=== PATIENT | female | born 1975 | race African-American/Black ===

== ENCOUNTER 2017-10-11 11:22 | Observation (INO) ==
[2017-10-11] MEDS ORDERED: Sod Chloride 0.9% Inj 1,000 ML IV.SIG ONE (11:56)
--- NOTE | 2017-10-11 12:02 | ED ---
HPI General Chief complaint: Nausea/Vomiting/Diarrhea Stated complaint: Vomiting/Evac Time Seen by Provider: 10/11/17 11:49 History of Present Illness HPI Narrative: Patient comes emerge department complaining of generalized abdominal pain is crampy-like in nature throughout her abdomen. Reports symptoms began shortly after eating seafood last night. Patient states that she eats salmon every night, which she did again last night. Denies any radiation of pain. Patient reports taking her Zofran around 4:00 in the morning with no improvement of symptoms. Patient reports associated nausea, vomiting, and looser than normal stools. Denies any blood in vomit or stools. Denies any urinary symptoms, chest pain, shortness of breath, or fevers. Patient reports only abdominal surgeries for hernia repair. Related Data Home Medications Medication Instructions Recorded Confirmed No Known Home Medications 10/11/17 10/11/17 Allergies Allergy/AdvReac Type Severity Reaction Status Date / Time No Known Allergies Allergy Uncoded 05/18/13 22:36 Review of Systems Except as stated in HPI: all other systems reviewed are negative [facility] Medical History Medical History Patient denies medical problems (Acute) Surgical History Surgical History H/O hernia repair (Acute) History of hip surgery (Acute) Social History Social History Second Hand Smoke Exposure: Yes Smoking Status: Current every day smoker Tobacco Type: Cigarettes How Often Do You Have a Drink Containing Alcohol: Never Recent Travel in [place] within the Last 8 Weeks: No Recent Out of Country Travel within the Last 8 Weeks: No Immunization History Tetanus Immunization: Unsure Hx Influenza Vaccine This Season: No Exam Narrative Exam Narrative: GENERAL: Well-developed, overly nourished, in no acute distress , and non-ill appearing. SKIN: Focused skin assessment warm and dry. HEAD: Atraumatic. Normocephalic. EYES: Pupils equal and round. EOMI. No scleral icterus. No injection or drainage. ENT: No nasal bleeding or discharge. Mucous membranes pink and moist. NECK: Trachea midline. Supple. No nuclear rigidity. CARDIOVASCULAR: Regular rate and rhythm. No murmur appreciated. RESPIRATORY: No accessory muscle use. No respiratory distress. Clear to auscultation. Breath sounds equal bilaterally. GASTROINTESTINAL: Abdomen soft, non-tender, nondistended, and no guarding. Hepatic and splenic margins not palpable. Normal bowel sounds x4. No pulsatile mass. MUSCULOSKELETAL: No obvious deformities. No clubbing. No cyanosis. No edema. Full range of motion. NEUROLOGICAL: Awake and alert. No obvious cranial nerve deficits. Motor grossly within normal limits. Normal speech. PSYCHIATRIC: Appropriate mood and affect; insight and judgment normal. Course Reevaluation(s) Reevaluation #1: Patient reassessed in no acute distress. Discussed all laboratory and x-ray findings with patient. Awaiting CT scan. Patient now reports she has had something like this happen to her before and was placed on double to see if it was a combination of GI and [employer] problems. Time: 14:05 Consultations Consultation #1: Discussed patient with Dr. Larry Peterson, who is agreeable to admit the patient Time: 17:04 Initial Documented Vital Signs Temperature 98.5 F 10/11/17 11:26 Pulse Rate 69 10/11/17 11:26 Respiratory Rate 16 10/11/17 11:26 Blood Pressure 115/60 10/11/17 11:26 Pulse Oximetry 100 10/11/17 11:26 Last Documented Vital Signs Temperature 98.5 F 10/11/17 11:26 Pulse Rate 74 10/11/17 14:50 Respiratory Rate 16 10/11/17 15:17 Blood Pressure 134/74 10/11/17 14:50 Pulse Oximetry 99 10/11/17 14:50 Medical Decision Making MDM Narrative Medical decision making narrative: Patient was seen and examined. IV was established patient was placed on continuous cardiac monitoring. Patient was given Zofran, IV morphine, and IV fluids. Patient was reevaluated requesting more pain and nausea medication. Patient was given additional Reglan, and Benadryl. Discussed all findings patient, who states she does not feel well enough to go home. Discussed patient with Dr. To patient placed in observation for further evaluation. Discussed this with patient, is agreeable for admission. All questions were answered. Patient requesting something for burning sensation from vomiting. GI cocktail was ordered. Discussed patient with hospitalist who is agreeable to admit the patient. Patient remained stable throughout ED course. Differential Diagnosis Differential Diagnosis: Gastroenteritis, UTI, pancreatitis, metabolic disturbance, dehydration, cyclic vomiting, SBO POC Test Results POC Urine Results: Negative Lab Data Lab results reviewed: Yes I reviewed the patient's lab results. Result diagrams: 10/11/17 12:15 10/11/17 12:15 Lab Results 10/11/17 10/11/17 10/11/17 Range/Units 12:15 12:15 12:50 WBC 11.1 H (4.0-11.0) th/mm3 RBC 5.49 H (4.00-5.30) mil/mm3 Hgb 13.2 (11.6-15.3) gm/dL Hct 42.2 (35.0-46.0) % MCV 76.8 L (80.0-100.0) fL MCH 24.0 L (27.0-34.0) pg MCHC 31.2 L (32.0-36.0) % RDW 16.1 (11.6-17.2) % Plt Count 324 (150-450) th/mm3 MPV 8.6 (7.0-11.0) fL Neut % (Auto) 79.5 H (16.0-70.0) % Lymph % (Auto) 18.1 (9.0-44.0) % [place] % (Auto) 2.0 (0.0-8.0) % Eos % (Auto) 0.1 (0.0-4.0) % Baso % (Auto) 0.3 (0.0-2.0) % Neut # (Auto) 8.8 H (1.8-7.7) th/mm3 Lymph # (Auto) 2.0 (1.0-4.8) th/mm3 [place] # (Auto) 0.2 (0.0-0.9) th/mm3 Eos # (Auto) 0.0 (0.0-0.4) th/mm3 Baso # (Auto) 0.0 (0.0-0.2) th/mm3 WBC Differential . Differential Comment Auto diff final Sodium 141 (136-145) meq/L Potassium 3.9 (3.5-5.1) meq/L Chloride 111 H (98-107) meq/L Carbon Dioxide 18.3 L (21.0-32.0) meq/L Anion Gap 12 (5-15) meq/L BUN 9 (7-18) mg/dL Creatinine 0.95 (0.50-1.00) mg/dL Estimated GFR 78 L (>89) mL/min Random Glucose 110 H (74-106) mg/dL Calcium 9.6 (8.5-10.1) mg/dL Total Bilirubin 0.4 (0.2-1.0) mg/dL AST 16 (15-37) U/L ALT 31 (10-53) U/L Alkaline Phosphatase 58 (45-117) U/L Total Protein 8.4 H (6.4-8.2) g/dL Albumin 4.3 (3.4-5.0) g/dL Lipase 106 (73-393) U/L Urine Color Yellow (Yellw/Straw) Urine Clarity Hazy H (Clear) Urine pH 9.0 H (5.0-8.5) Ur Specific [place] 1.023 (1.002-1.035) Urine Protein 100 H (Neg-Trace) mg/dL Urine Glucose (UA) Negative (Negative) mg/dL Urine Ketones Negative (Negative) mg/dL Urine Occult Blood Negative (Negative) Urine Nitrate Negative (Negative) Urine Bilirubin Negative (Negative) Urine Urobilinogen Less than 2 (Less than 2) mg/dL Ur Leukocyte Esterase Negative (Negative) Urine RBC 2 (0-3) /hpf Urine WBC 1 (0-5) /hpf Ur Squamous Epith Cells 17 (0-5) /hpf Urine Bacteria Rare H (None) /hpf Urine Mucus Few H (Occasional) /lpf Micro UA Comment Culture not ind Urine Culture Comments Culture not ind Imaging Data Radiologist's impression: ITS Impressions Abdomen/Pelvis CT 10/11/17 11:56 CONCLUSION: 1. No acute findings within the abdomen and pelvis. Small hiatal hernia. Previous plate and screw fixation left acetabulum. Chest X-Ray 10/11/17 13:14 CONCLUSION: No acute cardiopulmonary disease. Discharge Plan Discharge Disposition Patient Disposition: 30 Still Patient Discharge Details Discharge Problem: Intractable abdominal pain Physicians Team ED Provider: Praful To ED Midlevel Provider: Armando Zhang Primary Care Provider: Primary Care Nickyi,Nano Attending Provider: Larry Peterson Status ED Status: Admitted Observation Patient
[2017-10-11] MEDS ORDERED: Morphine Inj 4 MG/ML Vial IV.PUSH ONE (12:32)
[2017-10-11 12:39] LABS: Baso % (Auto) 0.3 % (0.0-2.0); Eos % (Auto) 0.1 % (0.0-4.0); Hematocrit 42.2 % (35.0-46.0); Hemoglobin 13.2 gm/dL (11.6-15.3); Lymph % (Auto) 18.1 % (9.0-44.0); Mean Corpuscular HGB Conc 31.2 % (32.0-36.0); Mean Corpuscular Volume 76.8 fL (80.0-100.0); Mean Platelet Volume 8.6 fL (7.0-11.0); Mono # (Auto) 0.2 th/mm3 (0.0-0.9); Neut # (Auto) 8.8 th/mm3 (1.8-7.7); Neut % (Auto) 79.5 % (16.0-70.0); Platelet Count 324 th/mm3 (150-450); Red Blood Count 5.49 mil/mm3 (4.00-5.30); Red Cell Distribution Width 16.1 % (11.6-17.2); White Blood Count 11.1 th/mm3 (4.0-11.0)
[2017-10-11 12:59] LABS: Alanine Aminotransferase 31 U/L (10-53); Albumin 4.3 g/dL (3.4-5.0); Anion Gap 12 meq/L (5-15); Aspartate Aminotransferase 16 U/L (15-37); Blood Urea Nitrogen 9 mg/dL (7-18); Calcium 9.6 mg/dL (8.5-10.1); Carbon Dioxide 18.3 meq/L (21.0-32.0); Chloride 111 meq/L (98-107); Glomerular Filtration Rate 78 mL/min (>89); Glucose,Random 110 mg/dL (74-106); Lipase 106 U/L (73-393); Potassium 3.9 meq/L (3.5-5.1); Sodium 141 meq/L (136-145)
[2017-10-11 13:01] LABS: Alkaline Phosphatase 58 U/L (45-117); Total Protein 8.4 g/dL (6.4-8.2)
--- NOTE | 2017-10-11 13:40 | XR ---
EXAM DATE: 10/11/2017 1:30 PM EDT AGE/SEX: 42 years / Female INDICATIONS: Free Air. CLINICAL DATA: This is the patient's initial encounter. Patient reports that signs and symptoms have been present for 1 day and indicates a pain score of Nonresponsive. MEDICAL/SURGICAL HISTORY: Non-responsive. Non-responsive. COMPARISON: No prior exams available for comparison. FINDINGS: A single AP view of the chest demonstrates the lungs to be symmetrically aerated without evidence of mass, infiltrate or effusion. The cardiomediastinal contours are unremarkable. Osseous structures a re intact. CONCLUSION: No acute cardiopulmonary disease. Electronically signed by: David Mendez MD 10/11/2017 1:39 PM EDT
[2017-10-11] MEDS ORDERED: Ketorolac Inj 30 MG/ML (IVP) Vial IV.PUSH ONE (13:53)
[2017-10-11 14:01] LABS: Bacteria,Urine Rare /hpf; Bilirubin,Urine Negative (Negative); Clarity,Urine Hazy (Clear); Color,Urine Yellow (Yellw/Straw); Glucose,Urine (UA) Negative (Negative); Leukocyte Esterase,Urine Negative (Negative); Mucus,Urine Few /lpf (Occasional); Nitrite,Urine Negative (Negative); Specific Gravity,Urine 1.023 (1.002-1.035); Squamous Epithelial Cell,Urine 17 /hpf (0-5)
[2017-10-11] MEDS ORDERED: Morphine Sulfate Inj 2 MG/ML Vial IV.PUSH ONE (14:10)
--- NOTE | 2017-10-11 16:01 | CT ---
EXAM DATE: 10/11/2017 3:30 PM EDT AGE/SEX: 42 years / Female INDICATIONS: Abdominal pain with vomiting. CLINICAL DATA: This is the patient's initial encounter. Patient reports that signs and symptoms have been present for 1 day and indicates a pain score of 8/10. MEDICAL/SURGICAL HISTORY: None. . hernia repair ORAL CONTRAST: No oral contrast ingested. RADIATION DOSE: 9.36 CTDI (mGy) COMPARISON: No prior exams available for comparison. TECHNIQUE: Multiple contiguous axial images were obtained through the abdomen and pelvis following b olus infusion of 100 ml Omnipaque 350 (iohexol) nonionic water-soluble contrast as a single exam do se. No oral contrast ingested. Using automated exposure control and adjustment of the mA and/or kV a ccording to patient size, radiation dose was kept as low as reasonably achievable to obtain optimal d iagnostic quality images. DICOM format image data is available electronically for review and compari son. FINDINGS: Lung bases demonstrate minimal linear atelectasis or scarring. No acute findings in the liver, spleen, adrenals, kidneys or pancreas. No calcified gallstones. The bowel obstruction. No free air or free fluid. No adenopathy. There is previous screw fixation of the left posterior acetabulum. No pelvic masses or adenopathy. Small hiatal hernia. CONCLUSION: 1. No acute findings within the abdomen and pelvis. Small hiatal hernia. Previous plate and screw fi xation left acetabulum. Electronically signed by: Cali Lopez MD 10/11/2017 3:59 PM EDT
[2017-10-11] MEDS ORDERED: Aluminum/Magnesium/Simethacone Susp 30 ML UDC PO ONE (16:45)
[2017-10-11] MEDS ORDERED: Morphine Sulfate Inj 2 MG/ML Vial IV.PUSH PRN (17:04)
[2017-10-11] MEDS: Morphine Inj 4 MG/ML Vial IV.PUSH PRN ×2 (17:24→21:18)
[2017-10-11] MEDS: Sod Chloride 0.9% Inj 1,000 ML IV.CONT SCH (17:24)
--- NOTE | 2017-10-11 18:14 | P.HPIM ---
History of Present Illness Primary Care Physician: No Primary Care Physician History of Present Illness: Mrs. Haque is a 42 year old female. She came into the ER today secondary to nausea vomiting and diarrhea. She reports no sick contacts. She also cannot recall any food that she ate that could have triggered her nausea vomiting and diarrhea. Her primary complaint is severe abdominal pain. She says that she has been getting episodes like this about once a month for almost a year. She has concerns that she could have an autoimmune condition such as ulcerative colitis or Crohn's disease. No fevers are reported. No blood in the diarrhea is reported. No family history of autoimmunity. Patient denies any positive family history. Inpatient Certification: I certify that the inpatient services were ordered in accordance with Medicare regulations governing the order. This includes certification that hospital inpatient services are reasonable and necessary and in the case of services not specified as inpatient-only under 42 CFR 419.22(n), that they are appropriately provided as inpatient services in accordance to with the 2-midnight benchmark under 43 CFR 412.3(e) Review of Systems Constitutional: Reports fatigue, Reports weakness, Denies fever(s) Eyes: Denies blind spots, Denies blurry vision, Denies bulging eyes Ears, Nose, Mouth, and Throat: Denies abnormal hearing, Denies ear pain, Denies facial pain Cardiovascular: Denies chest pain, Denies chest pain at rest, Denies chest pain with activity, Denies rapid, pounding, or irregular heartbeat Respiratory: Denies cough, Denies shortness of breath, Denies wheezing Gastrointestinal: Reports abdominal pain, Reports nausea, Reports vomiting Comments: Diarrhea Musculoskeletal: Denies back pain, Denies body aches, Denies deformity Skin/Breast: Denies rash, Denies skin pain, Denies skin ulcer Neurologic: Denies abnormal hearing, Denies abnormal movements, Denies abnormal speech PMFSH - History History Provided By: Patient - Medical History Medical History: Medical History (Last Reviewed 10/11/17 @ 12:11 by LANETTE Wolf) Patient denies medical problems - Surgical History Surgical History: Surgical History (Last Reviewed 10/11/17 @ 12:11 by LANETTE Wolf) H/O hernia repair History of hip surgery - Tobacco History Second Hand Smoke Exposure: Yes Tobacco Use In Past 30 Days: Yes Smoking Status: Current every day smoker Tobacco Type: Cigarettes - Alcohol History How Often Do You Have a Drink Containing Alcohol: Never - Travel History Recent Travel in the [place] Within the Last 8 Weeks: No Recent Travel Out of the Country Within the Last 8 Weeks: No - Immunization History Tetanus Immunization: Unsure Hx Influenza Vaccine This Season: No Medications and Allergies Active Medications: Active Medications Al Hydroxide/Mg Hydroxide (Milk Of Magncale[place] Liq) 30 ml PO Q12H PRN PRN Reason: Mild Constipation Sodium Chloride (Ns Inj) 1,000 mls @ 100 mls/hr IV.CONT .Q10H ZEE Last Admin: 10/11/17 17:24 Dose: 100 mls/hr Metoclopramide HCl (Reglan Inj) 10 mg IV.PUSH Q8H PRN; Protocol PRN Reason: NAUSEA Morphine Sulfate (Morphine Inj) 2 mg IV.PUSH Q4H PRN PRN Reason: PAIN SCALE 3 TO 5 Morphine Sulfate (Morphine Inj) 4 mg IV.PUSH Q4H PRN PRN Reason: PAIN SCALE 6 TO 10 Last Admin: 10/11/17 17:24 Dose: 4 mg Ondansetron HCl (Zofran Inj) 4 mg IV.PUSH Q6H PRN PRN Reason: NAUSEA OR VOMITING Sodium Chloride (Ns Flush) 2 ml IV.FLUSH PRN PRN PRN Reason: FLUSH AFTER USING IV ACCESS Last Admin: 10/11/17 12:36 Dose: 2 ml Allergies Allergy/AdvReac Type Severity Reaction Status Date / Time No Known Allergies Allergy Uncoded 05/18/13 22:36 Home Medications Medication Instructions Recorded Confirmed Type No Known Home Medications 10/11/17 10/11/17 History Exam Vital signs: Vital Signs 10/11/17 11:26 10/11/17 12:33 10/11/17 14:49 Temperature 98.5 F Pulse Rate 69 Respiratory Rate 16 16 Blood Pressure 115/60 Pulse Oximetry 100 94 L 10/11/17 14:50 10/11/17 15:06 10/11/17 15:17 Temperature Pulse Rate 74 Respiratory Rate 16 16 16 Blood Pressure 134/74 Pulse Oximetry 99 Intake & Output 10/10/17 10/11/17 10/11/17 18:59 06:59 18:59 Intake Total 1000 / 1000 Balance 1000 / 1000 Weight 108.862 kg Intake: IV 1000 / 1000 NS Inj 1,000 ML @ Wide Open IV. 1000 / 1000 SIG BOLUS ONE Rx#:[id number] - Routine HEENT Exam Comments: GENERAL: NAD, A&Ox3 HEAD: Normocephalic. NECK: Supple, trachea midline. No lymphadenopathy. EYES: No scleral icterus. No injection or drainage. CARDIOVASCULAR: Regular rate and rhythm without murmurs, gallops, or rubs. RESPIRATORY: Breath sounds equal bilaterally. No accessory muscle use. GASTROINTESTINAL: Abdomen soft, non-tender, nondistended. MUSCULOSKELETAL: No cyanosis, or edema. SKIN: Warm and dry. NEURO: No focal neurological deficits. Results - Labs CBC & Chem 7: 10/11/17 12:15 10/11/17 12:15 Labs: Short CBC 10/11/17 Range/Units 12:15 WBC 11.1 H (4.0-11.0) th/mm3 Hgb 13.2 (11.6-15.3) gm/dL Hct 42.2 (35.0-46.0) % Plt Count 324 (150-450) th/mm3 BMP 10/11/17 12:15 Sodium 141 Potassium 3.9 Chloride 111 H Carbon Dioxide 18.3 L BUN 9 Creatinine 0.95 Calcium 9.6 Liver Function 10/11/17 Range/Units 12:15 Total Bilirubin 0.4 (0.2-1.0) mg/dL AST 16 (15-37) U/L ALT 31 (10-53) U/L Alkaline Phosphatase 58 (45-117) U/L Albumin 4.3 (3.4-5.0) g/dL Urine 10/11/17 Range/Units 12:50 Urine Color Yellow (Yellw/Straw) Urine Clarity Hazy H (Clear) Urine pH 9.0 H (5.0-8.5) Ur Specific [place] 1.023 (1.002-1.035) Urine Protein 100 H (Neg-Trace) mg/dL Urine Glucose (UA) Negative (Negative) mg/dL - Imaging Impressions Abdomen/Pelvis CT 10/11/17 11:56 CONCLUSION: 1. No acute findings within the abdomen and pelvis. Small hiatal hernia. Previous plate and screw fixation left acetabulum. Chest X-Ray 10/11/17 13:14 CONCLUSION: No acute cardiopulmonary disease. Caprini VTE Risk Assessment Caprini VTE Risk Assessment: No/Low Risk (score <= 1) Caprini Risk Assessment Model: Point Value = 1 Point Value = 2 Point Value = 3 Point Value = 5 Age 41-60 Minor surgery BMI > 25 kg/m2 Swollen legs Varicose veins or History of unexplained or recurrent spontaneous Oral contraceptives or hormone replacement Sepsis (< 1 month) Serious lung disease, including pneumonia (< 1 month) Abnormal pulmonary function Acute myocardial infarction Congestive heart failure (< 1 month) History of inflammatory bowel disease Medical patient at bed rest Age 61-74 Arthroscopic surgery Major open surgery (> 45 min) Laparoscopic surgery (> 45 min) Malignancy Confined to bed (> 72 hours) Immobilizing plaster cast Central venous access Age >= 75 History of VTE Family history of VTE Factor V Leiden Prothrombin [id number] Lupus anticoagulant Anticardiolipin antibodies Elevated serum homocysteine Heparin-induced thrombocytopenia Other congenital or acquired thrombophilia Stroke (< 1 month) Elective arthroplasty Hip, pelvis, or leg fracture Acute spinal cord injury (< 1 month) Prophylaxis Regimen: Total Risk Factor Score Risk Level Prophylaxis Regimen 0-1 Low Early ambulation 2 Moderate Order ONE of the following: *Sequential Compression Device (SCD) *Heparin 5000 units SQ BID 3-4 Higher Order ONE of the following medications: *Heparin 5000 units SQ TID *Enoxaparin/Lovenox 40 mg SQ daily (WT < 150 kg, CrCl > 30 mL/min) *Enoxaparin/Lovenox 30 mg SQ daily (WT < 150 kg, CrCl > 10-29 mL/min) *Enoxaparin/Lovenox 30 mg SQ BID (WT < 150 kg, CrCl > 30 mL/min) AND/OR *Sequential Compression Device (SCD) 5 or more Highest Order ONE of the following medications: *Heparin 5000 units SQ TID (Preferred with Epidurals) *Enoxaparin/Lovenox 40 mg SQ daily (WT < 150 kg, CrCl > 30 mL/min) *Enoxaparin/Lovenox 30 mg SQ daily (WT < 150 kg, CrCl > 10-29 mL/min) *Enoxaparin/Lovenox 30 mg SQ BID (WT < 150 kg, CrCl > 30 mL/min) AND *Sequential Compression Device (SCD) Assessment and Plan - Plan 42-year-old female admitted secondary to irretractable abdominal pain with nausea vomiting and diarrhea. Irretractable abdominal pain Hyperemesis Diarrhea Continue as needed pain treatments No signs of infection Positive history of recurrence on approximately 1 month frequency Consult GI for assistance in evaluating for Crohn's or ulcerative colitis IV hydration Antiemetics DVT prophylaxis SCDs
[2017-10-12] MEDS: Morphine Inj 4 MG/ML Vial IV.PUSH PRN ×5 (00:59→19:50)
[2017-10-12 01:46] LABS: Activated Partial Thrombo Time 21.7 sec (24.3-30.1); INR 1.1 Ratio; Prothrombin Time 10.7 sec (9.8-11.6)
[2017-10-12] MEDS: Sod Chloride 0.9% Inj 1,000 ML IV.CONT SCH ×2 (04:29→18:33)
[2017-10-12 07:49] LABS: Baso % (Auto) 0.1 % (0.0-2.0); Hematocrit 37.3 % (35.0-46.0); Hemoglobin 11.9 gm/dL (11.6-15.3); Lymph # (Auto) 2.7 th/mm3 (1.0-4.8); Lymph % (Auto) 22.1 % (9.0-44.0); Mean Corpuscular Hemoglobin 23.8 pg (27.0-34.0); Mean Corpuscular Volume 74.3 fL (80.0-100.0); Mean Platelet Volume 8.5 fL (7.0-11.0); Mono # (Auto) 0.7 th/mm3 (0.0-0.9); Mono % (Auto) 5.6 % (0.0-8.0); Neut # (Auto) 8.7 th/mm3 (1.8-7.7); Neut % (Auto) 72.2 % (16.0-70.0); Platelet Count 333 th/mm3 (150-450); Red Blood Count 5.02 mil/mm3 (4.00-5.30); Red Cell Distribution Width 16.3 % (11.6-17.2); White Blood Count 12.1 th/mm3 (4.0-11.0)
[2017-10-12 08:15] LABS: Alanine Aminotransferase 23 U/L (10-53); Alkaline Phosphatase 48 U/L (45-117); Anion Gap 11 meq/L (5-15); Aspartate Aminotransferase 12 U/L (15-37); Blood Urea Nitrogen 12 mg/dL (7-18); Calcium 8.7 mg/dL (8.5-10.1); Carbon Dioxide 21.4 meq/L (21.0-32.0); Chloride 111 meq/L (98-107); Glomerular Filtration Rate Greater Than 89 mL/min (>89); Glucose,Random 108 mg/dL (74-106); Potassium 3.5 meq/L (3.5-5.1); Sodium 143 meq/L (136-145); Total Protein 7.3 g/dL (6.4-8.2)
--- NOTE | 2017-10-12 15:08 | P.CONGI ---
History of Present Illness Consult date: 10/12/17 Consult reason: Intractable abdominal pain Chief complaint: INTRACTABLE ABDOMINAL PAIN;NAUSEA/VOMITING History of Present Illness: This is a morbid obese female who came to the hospital for evaluation on 2017 for intractable abdominal pain, nausea and vomiting. Patient states onset of symptoms for the past month or 2 and have progressively gotten worse. She notes the abdominal pain as a epigastric and gastric pressure sensation like a band is around her epigastric region. Patient denies any history of gallbladder disease but does state that she has had a gastric emptying study done 1-2 years ago which was negative. CT scan on 10/11/2017 does show small hiatal hernia but no other acute process. Current labs show hemoglobin 11.9, WBC count 12.1, PT/INR 1.1, and LFTs as well as bilirubin normal range. Patient does note aggregating factors with all foods but she does try to limit her intake of spicy or greasy foods. Patient states she did note one darker stool the day of admission (possible melena), and notes more frequent bowel movements daily but notes stools to be soft not watery or diarrhea. Patient has been receiving Reglan since her admission but states medicine is ineffective for the pain. She does have abdominal bloating and belching onset of symptoms for the past few months worsened. Patient notes previous colonoscopy 5 or 6 years ago but did not remember results. No known EGD in the past patient denies any family history of colon cancer or GI disease. Patient is borderline tearful with her uncontrolled epigastric and gastric abdominal pain, rates the pain an 8 out of a 10. <Susan Hennessy - Last Filed: 10/12/17 15:08> Review of Systems All other systems reviewed negative except as stated in HPI <Susan Hennessy - Last Filed: 10/12/17 15:08> PMFSH - History History Provided By: Patient - Medical History Medical History: Medical History (Last Reviewed 10/11/17 @ 12:11 by LANETTE Wolf) Patient denies medical problems - Surgical History Surgical History: Surgical History (Last Reviewed 10/11/17 @ 12:11 by LANETTE Wolf) H/O hernia repair History of hip surgery - Tobacco History Second Hand Smoke Exposure: Yes Tobacco Use In Past 30 Days: Yes Smoking Status: Current every day smoker Tobacco Type: Cigarettes - Alcohol History How Often Do You Have a Drink Containing Alcohol: Never - Substance Use History Substance History: No History of Abuse - Travel History Recent Travel in the [place] Within the Last 8 Weeks: No Recent Travel Out of the Country Within the Last 8 Weeks: No - Immunization History Tetanus Immunization: Unsure Hx Influenza Vaccine This Season: No <Susan Hennessy - Last Filed: 10/12/17 15:08> - Medical History Medical History: Medical History (Last Reviewed 10/11/17 @ 12:11 by LANETTE Wolf) Patient denies medical problems - Surgical History Surgical History: Surgical History (Last Reviewed 10/11/17 @ 12:11 by LANETTE Wolf) H/O hernia repair History of hip surgery <Gianna Rea - Last Filed: 10/12/17 16:46> Medications and Allergies Active Medications: Active Medications Al Hydroxide/Mg Hydroxide (Milk Of Magnesia Liq) 30 ml PO Q12H PRN PRN Reason: Mild Constipation Sodium Chloride (Ns Inj) 1,000 mls @ 100 mls/hr IV.CONT .Q10H [facility] Last Admin: 10/12/17 04:29 Dose: 100 mls/hr Metoclopramide HCl (Reglan Inj) 10 mg IV.PUSH Q8H PRN; Protocol PRN Reason: NAUSEA Last Admin: 10/12/17 14:03 Dose: 10 mg Morphine Sulfate (Morphine Inj) 2 mg IV.PUSH Q4H PRN PRN Reason: PAIN SCALE 3 TO 5 Morphine Sulfate (Morphine Inj) 4 mg IV.PUSH Q4H PRN PRN Reason: PAIN SCALE 6 TO 10 Last Admin: 10/12/17 14:04 Dose: 4 mg Ondansetron HCl (Zofran Inj) 4 mg IV.PUSH Q6H PRN PRN Reason: NAUSEA OR VOMITING Sodium Chloride (Ns Flush) 2 ml IV.FLUSH PRN PRN PRN Reason: FLUSH AFTER USING IV ACCESS Last Admin: 10/11/17 12:36 Dose: 2 ml <Susan Hennessy - Last Filed: 10/12/17 15:08> Active Medications: Active Medications Al Hydroxide/Mg Hydroxide (Milk Of Magnesia Liq) 30 ml PO Q12H PRN PRN Reason: Mild Constipation Chlorhexidine Gluconate (Chlorhexidine 2% Cloth) 3 pack TOPICAL GARMENT MENDER [facility] Stop: 10/15/17 15:55 Sodium Chloride (Ns Inj) 1,000 mls @ 100 mls/hr IV.CONT .Q10H [facility] Last Admin: 10/12/17 04:29 Dose: 100 mls/hr Lactated Ringer's (Lr 1000 Ml Inj) 1,000 mls @ 30 mls/hr IV.SIG .Q24H [facility] Stop: 10/15/17 15:55 Sodium Chloride (Ns Inj) 500 mls @ 30 mls/hr IV.SIG .Q10H [facility] Stop: 10/15/17 15:55 Metoclopramide HCl (Reglan Inj) 10 mg IV.PUSH Q8H PRN; Protocol PRN Reason: NAUSEA Last Admin: 10/12/17 14:03 Dose: 10 mg Metoprolol Tartrate (Lopressor) 25 mg PO GARMENT MENDER [facility] Stop: 10/15/17 15:55 Morphine Sulfate (Morphine Inj) 2 mg IV.PUSH Q4H PRN PRN Reason: PAIN SCALE 3 TO 5 Morphine Sulfate (Morphine Inj) 4 mg IV.PUSH Q4H PRN PRN Reason: PAIN SCALE 6 TO 10 Last Admin: 10/12/17 14:04 Dose: 4 mg Ondansetron HCl (Zofran Inj) 4 mg IV.PUSH Q6H PRN PRN Reason: NAUSEA OR VOMITING Pantoprazole Sodium (Protonix) 40 mg PO BID [facility] Polyethylene Glycol (Miralax) 17 gm PO DAILY [facility] Povidone Iodine (Betadine 5% Antisepsis Kit) 1 applicatio EACH NARE GARMENT MENDER [facility] Stop: 10/15/17 15:55 Sodium Chloride (Ns Flush) 2 ml IV.FLUSH PRN PRN PRN Reason: FLUSH AFTER USING IV ACCESS Last Admin: 10/11/17 12:36 Dose: 2 ml <Gianna Rea - Last Filed: 10/12/17 16:46> Allergies Allergy/AdvReac Type Severity Reaction Status Date / Time No Known Allergies Allergy Uncoded 05/18/13 22:36 Home Medications Medication Instructions Recorded Confirmed Type No Known Home Medications 10/11/17 10/11/17 History Exam Vital signs: Vital Signs 10/11/17 15:06 10/11/17 15:17 10/11/17 18:45 Temperature 99 F Pulse Rate 66 Respiratory Rate 16 16 16 Blood Pressure 149/78 H Pulse Oximetry 99 10/11/17 20:00 10/12/17 00:00 10/12/17 04:00 Temperature 99.2 F 98.6 F 98.6 F Pulse Rate 75 78 76 Respiratory Rate 20 15 15 Blood Pressure 145/75 H 140/75 136/73 Pulse Oximetry 99 97 97 10/12/17 08:47 10/12/17 12:00 Temperature 98 F 98.3 F Pulse Rate 65 70 Respiratory Rate 20 20 Blood Pressure 129/65 141/90 H Pulse Oximetry 98 98 Intake & Output 10/11/17 10/12/17 10/12/17 18:59 06:59 18:59 Intake Total 1000 / 1000 1000 / 1000 Balance 1000 / 1000 1000 / 1000 Weight 108.862 kg Intake: IV 1000 / 1000 1000 / 1000 NS Inj 1,000 ML @ 100 mls/hr IV 1000 / 1000 .CONT .Q10H [facility] Rx#:[id number] NS Inj 1,000 ML @ Wide Open IV. 1000 / 1000 SIG BOLUS ONE Rx#:[id number] Other: Date of Last Bowel Movement 10/11/17 10/11/17 - Constitutional moderate distress, morbidly obese - Routine HEENT Exam Head: Present: normocephalic, atraumatic Eye: Present: EOMI ENT: Present: mucous membranes moist - Routine Neck Exam Present: supple (Obese) - Routine Cardiovascular Exam Present: S1, S2 (Distant) - Routine Abdominal Exam Present: soft, normoactive bowel sounds, tenderness (Epigastric and gastric to light palpation), distended (Mild) - Routine Extremities Exam Present: full ROM - Routine Skin Exam Present: intact - Routine Neurological Exam Present: alert, normal speech <Susan Hennessy M - Last Filed: 10/12/17 15:08> Vital signs: Vital Signs 10/11/17 18:45 10/11/17 20:00 10/12/17 00:00 Temperature 99 F 99.2 F 98.6 F Pulse Rate 66 75 78 Respiratory Rate 16 20 15 Blood Pressure 149/78 H 145/75 H 140/75 Pulse Oximetry 99 99 97 10/12/17 04:00 10/12/17 08:47 10/12/17 12:00 Temperature 98.6 F 98 F 98.3 F Pulse Rate 76 65 70 Respiratory Rate 15 20 20 Blood Pressure 136/73 129/65 141/90 H Pulse Oximetry 97 98 98 10/12/17 15:18 Temperature Pulse Rate 77 Respiratory Rate 18 Blood Pressure 147/95 H Pulse Oximetry 100 Intake & Output 10/11/17 10/12/17 10/12/17 18:59 06:59 18:59 Intake Total 1000 / 1000 1000 / 1000 Balance 1000 / 1000 1000 / 1000 Weight 108.862 kg Intake: IV 1000 / 1000 1000 / 1000 NS Inj 1,000 ML @ 100 mls/hr IV 1000 / 1000 .CONT .Q10H [facility] Rx#:[id number] NS Inj 1,000 ML @ Wide Open IV. 1000 / 1000 SIG BOLUS ONE Rx#:[id number] Other: Date of Last Bowel Movement 10/11/17 10/11/17 <Gianna Rea - Last Filed: 10/12/17 16:46> Results - Labs CBC & Chem 7: 10/12/17 06:54 10/12/17 06:54 Labs: Laboratory Results - last 24 hr 10/12/17 10/12/17 10/12/17 00:11 06:54 06:54 WBC 12.1 H RBC 5.02 Hgb 11.9 Hct 37.3 MCV 74.3 L MCH 23.8 L MCHC 32.0 RDW 16.3 Plt Count 333 MPV 8.5 Neut % (Auto) 72.2 H Lymph % (Auto) 22.1 [place] % (Auto) 5.6 Eos % (Auto) 0.0 Baso % (Auto) 0.1 Neut # (Auto) 8.7 H Lymph # (Auto) 2.7 [place] # (Auto) 0.7 Eos # (Auto) 0.0 Baso # (Auto) 0.0 WBC Differential . Differential Comment Auto diff final PT 10.7 INR 1.1 APTT 21.7 L Sodium 143 Potassium 3.5 Chloride 111 H Carbon Dioxide 21.4 Anion Gap 11 BUN 12 Creatinine 0.71 Estimated GFR Greater than 89 Random Glucose 108 H Calcium 8.7 D Total Bilirubin 0.5 AST 12 L ALT 23 Alkaline Phosphatase 48 Total Protein 7.3 D Albumin 4.0 - Imaging Impressions Abdomen/Pelvis CT 10/11/17 11:56 CONCLUSION: 1. No acute findings within the abdomen and pelvis. Small hiatal hernia. Previous plate and screw fixation left acetabulum. <[place]Cl[place] M - Last Filed: 10/12/17 15:08> - Labs CBC & Chem 7: 10/12/17 06:54 10/12/17 06:54 Labs: Laboratory Results - last 24 hr 10/12/17 10/12/17 10/12/17 00:11 06:54 06:54 WBC 12.1 H RBC 5.02 Hgb 11.9 Hct 37.3 MCV 74.3 L MCH 23.8 L MCHC 32.0 RDW 16.3 Plt Count 333 MPV 8.5 Neut % (Auto) 72.2 H Lymph % (Auto) 22.1 [place] % (Auto) 5.6 Eos % (Auto) 0.0 Baso % (Auto) 0.1 Neut # (Auto) 8.7 H Lymph # (Auto) 2.7 [place] # (Auto) 0.7 Eos # (Auto) 0.0 Baso # (Auto) 0.0 WBC Differential . Differential Comment Auto diff final PT 10.7 INR 1.1 APTT 21.7 L Sodium 143 Potassium 3.5 Chloride 111 H Carbon Dioxide 21.4 Anion Gap 11 BUN 12 Creatinine 0.71 Estimated GFR Greater than 89 Random Glucose 108 H Calcium 8.7 D Total Bilirubin 0.5 AST 12 L ALT 23 Alkaline Phosphatase 48 Total Protein 7.3 D Albumin 4.0 <Gianna Rea - Last Filed: 10/12/17 16:46> Assessment and Plan (1) GERD with esophagitis Status: Acute Code(s): K21.0 - Gastro-esophageal reflux disease with esophagitis (2) Nausea and vomiting Status: Acute Code(s): R11.2 - Nausea with vomiting, unspecified (3) Intractable abdominal pain Status: Acute Code(s): R10.9 - Unspecified abdominal pain (4) Gastroparesis Status: Acute Code(s): K31.84 - Gastroparesis (5) Gastroparesis Status: Acute Code(s): K31.84 - Gastroparesis - Plan Epigastric and gastric abdominal pain, 1-2 months onset worsened and became uncontrolled on a scale of 10 to 1024 hrs. before coming to the emergency room. Patient is receiving Reglan but states it is ineffective and states all foods worsen her symptoms but even when she is not eating she has abdominal pressure and signs of dyspepsia. Patient states increased number of BMs 1 stool dark (melena)?, but denies any liquid stools. Possible some incomplete evacuation of stool or constipation unaware. Nausea and vomiting symptoms started 1-2 months ago at the same time patient was having epigastric pain and pressure. Need to rule out ulcers versus esophagitis versus gastritis. Previous colonoscopy 5-6 years ago unknown results patient denies any history of gallbladder disease. Anemia, possible acute on chronic current labs show hemoglobin 11.9 but no obvious hematemesis or rectal bleeding leukocytosis mild current hemoglobin 12.1 Leukocytosis mild WBC count 12.1 unspecified PT/INR 1.1. CT scan on 7 shows small hiatal hernia but no other acute disease process. Discussed with patient the possibility for EGD and patient agreed on plan Plan Diet clear liquids Consent for EGD in a.m. N.p.o. at midnight MiraLAX daily PPI Reglan Anti-medics Further recommendations to follow Patient was seen per myself and Dr. Rea, this note was written on her behalf <Susan Hennessy - Last Filed: 10/12/17 15:08> (1) GERD with esophagitis Status: Acute Code(s): K21.0 - Gastro-esophageal reflux disease with esophagitis (2) Nausea and vomiting Status: Acute Code(s): R11.2 - Nausea with vomiting, unspecified (3) Intractable abdominal pain Status: Acute Code(s): R10.9 - Unspecified abdominal pain (4) Gastroparesis Status: Acute Code(s): K31.84 - Gastroparesis (5) Gastroparesis Status: Acute Code(s): K31.84 - Gastroparesis - Attending Attestation Seen, examined agree with above States she had a gastric emptying in [place]-was told she has gastroparesis did not have HIDA scan also reports having headaches Recommendations EGD in am ct brain if negative we will order HIDa scan <Gianna Rea - Last Filed: 10/12/17 16:46> <Susan Hennessy - Last Filed: 10/12/17 15:08> (2) Nausea and vomiting Qualifiers: Vomiting type: bilious vomiting Qualified Code(s): R11.14 - Bilious vomiting <Gianna Rea - Last Filed: 10/12/17 16:46> (2) Nausea and vomiting Qualifiers: Vomiting type: bilious vomiting Qualified Code(s): R11.14 - Bilious vomiting
[2017-10-12] MEDS ORDERED: Metoprolol Tartrate 25 MG Tablet PO SCH (16:00)
[2017-10-12] MEDS ORDERED: Sodium Chlor 0.9% Inj 500 ML IV.SIG SCH (16:00)
[2017-10-12] MEDS ORDERED: Chlorhexidine Gluconate 2% 1 Pack (2 Cloths) TOPICAL SCH (16:00)
[2017-10-12] MEDS ORDERED: medroxyPROGESTERone Acetate Inj 150 MG/ML Syringe IM ONE (16:52)
[2017-10-12] MEDS ORDERED: Promethazine 25 MG Supp RECTAL PRN (16:58)
--- NOTE | 2017-10-12 17:04 | P.PNIM ---
Subjective Interval history: Patient reports persistent abdominal pain and nausea. States the pain medication is not lasting for hours. She reports that she is due for her depot shot and is requesting that today. From her previous workup by previous doctors , she was put on Depo-Provera because there was concern that her symptoms are related to her menstrual cycle. Physical Exam Vital signs: Vital Signs 10/11/17 18:45 10/11/17 20:00 10/12/17 00:00 Temperature 99 F 99.2 F 98.6 F Pulse Rate 66 75 78 Respiratory Rate 16 20 15 Blood Pressure 149/78 H 145/75 H 140/75 Pulse Oximetry 99 99 97 10/12/17 04:00 10/12/17 08:47 10/12/17 12:00 Temperature 98.6 F 98 F 98.3 F Pulse Rate 76 65 70 Respiratory Rate 15 20 20 Blood Pressure 136/73 129/65 141/90 H Pulse Oximetry 97 98 98 10/12/17 15:18 Temperature Pulse Rate 77 Respiratory Rate 18 Blood Pressure 147/95 H Pulse Oximetry 100 Intake & Output 10/11/17 10/12/17 10/12/17 18:59 06:59 18:59 Intake Total 1000 / 1000 1000 / 1000 Balance 1000 / 1000 1000 / 1000 Weight 108.862 kg Intake: IV 1000 / 1000 1000 / 1000 NS Inj 1,000 ML @ 100 mls/hr IV 1000 / 1000 .CONT .Q10H [facility] Rx#:[id number] NS Inj 1,000 ML @ Wide Open IV. 1000 / 1000 SIG BOLUS ONE Rx#:[id number] Other: Date of Last Bowel Movement 10/11/17 10/11/17 Narrative: GENERAL: Obese female in no apparent distress. CARDIOVASCULAR: Normal rate and regular rhythm without murmurs, gallops, or rubs. RESPIRATORY: Good respiratory efforts. Breath sounds equal and clear to auscultation bilaterally. GASTROINTESTINAL: Abdomen soft, diffusely tender to palpation. Normal active bowel sounds MUSCULOSKELETAL: Extremities without cyanosis, or edema. NEURO: Alert & Oriented x4 to person, place, time, situation. Moves all ext x4 PSYCH: Appropriate mood and affect. Results - Labs CBC & Chem 7: 10/12/17 06:54 10/12/17 06:54 Laboratory Results - last 24 hr 07/08/18 07/08/18 07/08/18 00:11 06:54 06:54 WBC 12.1 H RBC 5.02 Hgb 11.9 Hct 37.3 MCV 74.3 L MCH 23.8 L MCHC 32.0 RDW 16.3 Plt Count 333 MPV 8.5 Neut % (Auto) 72.2 H Lymph % (Auto) 22.1 [place] % (Auto) 5.6 Eos % (Auto) 0.0 Baso % (Auto) 0.1 Neut # (Auto) 8.7 H Lymph # (Auto) 2.7 [place] # (Auto) 0.7 Eos # (Auto) 0.0 Baso # (Auto) 0.0 WBC Differential . Differential Comment Auto diff final PT 10.7 INR 1.1 APTT 21.7 L Sodium 143 Potassium 3.5 Chloride 111 H Carbon Dioxide 21.4 Anion Gap 11 BUN 12 Creatinine 0.71 Estimated GFR Greater than 89 Random Glucose 108 H Calcium 8.7 D Total Bilirubin 0.5 AST 12 L ALT 23 Alkaline Phosphatase 48 Total Protein 7.3 D Albumin 4.0 Assessment and Plan - Assessment (1) Intractable abdominal pain Code(s): R10.9 - Unspecified abdominal pain Status: Acute Plan: Reported history of gastroparesis per the patient. She reports her symptoms used to come monthly. There were concerns this was related to endometriosis and she was started on depot Provera. Patient reports since then her symptoms comes kimberly 3 months instead of monthly. -Continue supportive care with Reglan as needed. Add Phenergan -Appreciate GI following. Plan for EGD tomorrow. (2) Nausea and vomiting Code(s): R11.2 - Nausea with vomiting, unspecified Status: Acute Plan: See above. (3) Endometriosis Code(s): N80.9 - Endometriosis, unspecified Status: Suspected Plan: Patient is due for Depot Provera. Ordered. Pain control (2) Nausea and vomiting Qualifiers: Vomiting type: bilious vomiting Qualified Code(s): R11.14 - Bilious vomiting
--- NOTE | 2017-10-12 19:20 | CT ---
EXAM DATE: 10/12/2017 7:12 PM EDT AGE/SEX: 42 years / Female INDICATIONS: Headaches, nausea, vomiting rule out mass CLINICAL DATA: This is the patient's initial encounter. Patient reports that signs and symptoms have been present for 1 day and indicates a pain score of 4/10. MEDICAL/SURGICAL HISTORY: Gastroesophageal reflux disease. Gastroparesis. endometriosis, esophagit is None. RADIATION DOSE: 66.36 CTDI (mGy) COMPARISON: No prior exams available for comparison. TECHNIQUE: Axial images of the head were acquired without contrast and after intravenous administrat ion of 61 ml Omnipaque 350 (iohexol) nonionic water-soluble contrast as a single exam dose. Using automated exposure control and adjustment of the mA and/or kV according to patient size, radiation do se was kept as low as reasonably achievable to obtain optimal diagnostic quality images. DICOM forma t image data is available electronically for review and comparison. FINDINGS: Cerebrum: The ventricles are normal for age. No evidence of midline shift, mass lesion, hemorrhage or acute infarction. No extraaxial fluid collections are seen. Posterior Fossa: The cerebellum and brainstem are intact. The 4th ventricle is midline. The cerebe llopontine angle is unremarkable. Extracranial: The visualized portion of the orbits is intact. Skull: The calvaria is intact. No evidence of skull fracture. Post Contrast: No abnormal areas of parenchymal or dural enhancement. No evidence of blood-brain ba rrier breakdown. CONCLUSION: 1. Negative CT Head with and without contrast. Electronically signed by: Cali Lopez MD 10/12/2017 7:19 PM EDT
[2017-10-13] MEDS: Sod Chloride 0.9% Inj 1,000 ML IV.CONT SCH ×3 (00:30→20:28)
[2017-10-13] MEDS: Morphine Inj 4 MG/ML Vial IV.PUSH PRN ×3 (02:16→15:30)
[2017-10-13] MEDS: Polyethylene Glycol 3350 17 GM Packet PO SCH (11:01)
[2017-10-13] MEDS ORDERED: Lidocaine PF 1% Inj 5 ML Syringe INFILTRATN ONE (12:00)
--- NOTE | 2017-10-13 14:47 | GIPROC ---
[facility] [address] [facility]. [facility] [place], [id number] EGD PROCEDURE REPORT EXAM DATE: 10/13/2017 PATIENT NAME: Diane Haque MR #: [id number] BIRTHDATE: 1975 ATTENDING: Corby Samuels MD ORDER #: [id number] PSYCHIATRIC AIDE INSTRUCTOR: Kaity Rodrigues and Tiera Murillo STATUS: inpatient INDICATIONS: The patient is a 42 yr old female here for an EGD due to abdominal pain, nausea, and vomiting PROCEDURE PERFORMED: EGD w/ biopsy MEDICATIONS: None and Per Anesthesia. TOPICAL ANESTHETIC: none CONSENT: The patient understands the risks and benefits of the procedure and understands that these risks include, but are not limited to: sedation, allergic reaction, infection, perforation and/or bleeding. Alternative means of evaluation and treatment include, among others: physical exam, x-rays, and/or surgical intervention. The patient elects to proceed with this endoscopic procedure. medical equipment was checked for proper function. Hand hygiene and appropriate measures for infection prevention was taken. After the risks, benefits and alternatives of the procedure were thoroughly explained, Informed consent was verified, confirmed and timeout was successfully executed by the treatment team. The patient was anesthetized with topical anesthesia and the Pentax EG-[id number] endoscope was introduced through the mouth and advanced to the second portion of the duodenum. Retroflexion was performed and was normal The gastroscope was then slowly withdrawn and removed. ESOPHAGUS: The mucosa of the esophagus appeared normal. STOMACH: Multiple 1-3mm shallow and round erosions were found in the gastric antrum. Multiple biopsies was performed. Sample sent for histology. DUODENUM: The duodenal mucosa appeared normal in the bulb and second portion of the duodenum. ADVERSE EVENTS: There were no complications. IMPRESSIONS: 1. The esophagus appeared normal 2. Multiple 1-3mm erosions were found in the gastric antrum; multiple biopsies was performed 3. Normal duodenal mucosa in the bulb and second portion of the duodenum 4. Retroflexion was performed and was normal RECOMMENDATIONS: 1. Await biopsy results. Biopsy results will not be ready for 7-10 days. If you don't hear from us in two weeks, call our office for biopsy results. 2. Continue PPI PATIENT CONDITION: stable DISPOSITION: Observation REPEAT EXAM: NONE Corby Samuels MD eSigned: Corby Samuels MD 10/13/2017 2:46 PM cc: PATIENT NAME: Diane Haque MR#: [id number]
--- NOTE | 2017-10-13 17:30 | P.PNIM ---
Subjective Interval history: Patient continues to complain of abdominal pain. She states she was on Percocet 10/325 at home back in [place]. No nausea or vomiting. EGD grossly unremarkable except for some gastritis. Physical Exam Vital signs: Vital Signs 10/12/17 20:00 10/12/17 20:03 10/12/17 22:43 Temperature 99.2 F 99.1 F Pulse Rate 62 66 Respiratory Rate 17 18 Blood Pressure 158/86 H 166/95 H Pulse Oximetry 97 97 97 10/13/17 04:00 10/13/17 08:00 10/13/17 09:00 Temperature 98.4 F 98.8 F Pulse Rate 60 Respiratory Rate 15 18 16 Blood Pressure 173/84 H 134/74 Pulse Oximetry 98 97 10/13/17 12:00 10/13/17 14:50 Temperature 98.9 F 98.8 F Pulse Rate 66 56 L Respiratory Rate 20 20 Blood Pressure 120/75 164/98 H Pulse Oximetry 97 99 Intake & Output 10/12/17 10/13/17 10/13/17 18:59 06:59 18:59 Intake Total 1000 / 1000 1000 / 1000 0 / 0 Balance 1000 / 1000 1000 / 1000 0 / 0 Intake: IV 1000 / 1000 1000 / 1000 0 / 0 NS Inj 1,000 ML @ 100 mls/hr IV 1000 / 1000 1000 / 1000 0 / 0 .CONT .Q10H [facility] Rx#:[id number] Other: Date of Last Bowel Movement 10/11/17 10/11/17 10/11/17 Narrative: GENERAL: Obese female in no apparent distress. CARDIOVASCULAR: Normal rate and regular rhythm without murmurs, gallops, or rubs. RESPIRATORY: Good respiratory efforts. Breath sounds equal and clear to auscultation bilaterally. GASTROINTESTINAL: Abdomen soft, diffusely tender to palpation. Normal active bowel sounds MUSCULOSKELETAL: Extremities without cyanosis, or edema. NEURO: Alert & Oriented x4 to person, place, time, situation. Moves all ext x4 PSYCH: Appropriate mood and affect. Results - Labs CBC & Chem 7: 10/12/17 06:54 10/12/17 06:54 - Imaging Impressions Head CT 10/12/17 00:00 CONCLUSION: 1. Negative CT Head with and without contrast. Assessment and Plan - Assessment (1) Intractable abdominal pain Code(s): R10.9 - Unspecified abdominal pain Status: Acute Plan: Reported history of gastroparesis per the patient. She reports her symptoms used to come monthly. There were concerns this was related to endometriosis and she was started on depot Provera. Patient reports since then her symptoms comes every 3 months instead of monthly. -Continue supportive care with Reglan as needed. Add Phenergan -Appreciate GI following. Status post EGD today, grossly unremarkable, mild gastritis. - HIDA scan ordered per GI. -Today patient reports she normally takes Percocet chronically for back pain. She is from [place]. I am concerned about narcotic seeking behavior. Will not escalate pain medication at this time, advised nursing to call the patient' s pharmacy [place] to confirm her medications. I see no indication for IV pain medication at this time. (2) Nausea and vomiting Code(s): R11.2 - Nausea with vomiting, unspecified Status: Acute Plan: See above. (3) Endometriosis Code(s): N80.9 - Endometriosis, unspecified Status: Suspected Plan: Patient is due for Depot Provera. This was given during her hospitalization. Pain control - Plan Discharge Planning: Pending HIDA scan. If this is negative, patient will likely be discharged to follow-up outpatient. (2) Nausea and vomiting Qualifiers: Vomiting type: bilious vomiting Qualified Code(s): R11.14 - Bilious vomiting
[2017-10-14] MEDS: Sod Chloride 0.9% Inj 1,000 ML IV.CONT SCH (09:02)
[2017-10-14] MEDS ORDERED: Sincalide Inj 5 MCG Vial IV.PUSH ONE (11:39)
[2017-10-14] MEDS: Polyethylene Glycol 3350 17 GM Packet PO SCH (13:18)
--- NOTE | 2017-10-14 13:26 | NM ---
EXAM DATE: 10/14/2017 1:02 PM EDT AGE/SEX: 42 years / Female INDICATIONS: Abdomen pain and nausea. CLINICAL DATA: This is the patient's initial encounter. Patient reports that signs and symptoms have been present for 1 day and indicates a pain score of 0/10. MEDICAL/SURGICAL HISTORY: Gastroparesis. . Hip. COMPARISON: No prior exams available for comparison. DOSE: 4.3 mCi Tc-99m mebrofenin i.v. Medication: 2.18 mcg Cholecystokinin IV No symptomatic response Cholecystokinin was administered by slow infusion over 8 minutes beginning at 84 minutes. TECHNIQUE: Following the intravenous administration of radiotracer, dynamic sequential images were pe rformed with continuous acquisition. Time-activity curves were generated. FINDINGS: Hepatic Kinetics: There is prompt uptake of radiotracer in the liver. No focal defects are seen. Ther e is normal rate of washout from the hepatic parenchyma. Biliary Clearance: Activity is first seen in the extrahepatic biliary system at 35 minutes. There is normal excretion into the small bowel at approximately 85 minutes. Gallbladder: Activity is first seen in the gallbladder at 15 minutes. Post-CCK: After CCK administration, there is emptying of the gallbladder with a 90% ejection fraction . Common bile duct kinetics are normal and there is no evidence of biliary obstruction. No symptomat ic response after cholecystokinin infusion. Biliary-Enteric Reflux: None observed. CONCLUSION: Negative exam. No scintigraphic findings of an acute or chronic cholecystitis Electronically signed by: Juan Pablo Hightower MD 10/14/2017 1:25 PM EDT
--- NOTE | 2017-10-14 13:37 | P.DS ---
Date of admission: 10/11/17 17:06 Primary care physician: No Primary Care Physician Brief History from admission: HPI from the admitting physician. Mrs. Haque is a 42 year old female. She came into the ER today secondary to nausea vomiting and diarrhea. She reports no sick contacts. She also cannot recall any food that she ate that could have triggered her nausea vomiting and diarrhea. Her primary complaint is severe abdominal pain. She says that she has been getting episodes like this about once a month for almost a year. She has concerns that she could have an autoimmune condition such as ulcerative colitis or Crohn's disease. No fevers are reported. No blood in the diarrhea is reported. No family history of autoimmunity. Patient denies any positive family history. DS: Diagnosis - Discharge Diagnosis (1) Intractable abdominal pain Status: Acute (2) Nausea and vomiting Status: Acute (3) Endometriosis Status: Suspected DS: Medications - Discharge Medications Prescriptions: ondansetron [Zofran ODT] 4 mg PO Q6-8H PRN #15 tab PRN Reason: Nausea And Vomiting oxycodone-acetaminophen 1 tab PO Q4H PRN #15 tab PRN Reason: Pain Scale 6 To 10 pantoprazole 40 mg PO DAILY #30 tab DS: Summary Hospital Course: 42-year-old female admitted and treated for the following: (1) Intractable abdominal pain Code(s): R10.9 - Unspecified abdominal pain Status: Acute Plan: Reported history of gastroparesis per the patient. She reports her symptoms used to come monthly. There were concerns this was related to endometriosis and she was started on depot Provera. Patient reports since then her symptoms comes every 3 months instead of monthly. The patient underwent extensive workup including EGD, abdominal skin, and HIDA scan. No significant pathology was found. Patient later admitted she has chronic pain and takes narcotics on a daily basis. I suspect her symptoms are due to narcotics use/withdrawal. She did exhibit some narcotic seeking behavior at times. The patient is advised to follow-up outpatient with her PCP and mortgage loan processing clerk in [place]. She was advised to follow-up with her [employer] physician outpatient. (2) Nausea and vomiting Code(s): R11.2 - Nausea with vomiting, unspecified Status: Acute Plan: See above. (3) Endometriosis Code(s): N80.9 - Endometriosis, unspecified Status: Suspected Plan: Reported endometriosis. Patient is due for Depot Provera. This was given during her hospitalization. - Time Spent with Patient Total time spent providing and/or coordinating discharge services: - Quality: VTE Deep Vein Thrombosis/Pulmonary Embolism Present on Admission: Yes Exam Vital signs: Vital Signs 10/13/17 14:50 10/13/17 16:00 10/13/17 20:00 Temperature 98.8 F 99.2 F 99.1 F Pulse Rate 56 L 57 L 56 L Respiratory Rate 20 20 18 Blood Pressure 164/98 H 182/102 H 173/86 H Pulse Oximetry 99 100 100 10/14/17 00:00 10/14/17 03:49 10/14/17 04:00 Temperature 98.3 F 98.7 F Pulse Rate 58 L 56 L Respiratory Rate 21 18 16 Blood Pressure 162/98 H 152/77 H Pulse Oximetry 98 97 10/14/17 08:00 Temperature 98.9 F Pulse Rate 58 L Respiratory Rate 18 Blood Pressure 170/94 H Pulse Oximetry 94 L Intake & Output 10/13/17 10/14/17 10/14/17 18:59 06:59 18:59 Intake Total 400 / 400 1999 / 1999 Balance 400 / 400 1999 / 1999 Weight 108.8 kg Intake: IV 0 / 0 1100 / 1100 NS Inj 1,000 ML @ 100 mls/hr IV 0 / 0 1100 / 1100 .CONT .Q10H ZEE Rx#:[id number] Oral 900 / 900 Anesthesia Amount 400 / 400 Other: # Voids 4 Date of Last Bowel Movement 10/11/17 Narrative: GENERAL: This is a well-nourished, well-developed patient, in no apparent distress. CARDIOVASCULAR: Normal rate and regular rhythm without murmurs, gallops, or rubs. RESPIRATORY: Good respiratory efforts. Breath sounds equal and clear to auscultation bilaterally. GASTROINTESTINAL: Abdomen soft, patient reporting inconsistent diffuse abdominal pain. MUSCULOSKELETAL: Extremities without cyanosis, or edema. NEURO: Alert & Oriented x4 to person, place, time, situation. Moves all ext x4 PSYCH: Appropriate mood and affect. Results Procedures completed during hospitalization: EGD - Impressions ITS Impressions Abdomen/Pelvis CT 10/11/17 11:56 CONCLUSION: 1. No acute findings within the abdomen and pelvis. Small hiatal hernia. Previous plate and screw fixation left acetabulum. Chest X-Ray 10/11/17 13:14 CONCLUSION: No acute cardiopulmonary disease. Head CT 10/12/17 00:00 CONCLUSION: 1. Negative CT Head with and without contrast. Bile Acid Absorption NM 10/14/17 00:00 CONCLUSION: Negative exam. No scintigraphic findings of an acute or chronic cholecystitis Discharge Plan - Discharge Disposition Patient Disposition: 01 Discharge Home - Discharge Condition Condition: Good - Discharge Order Discharge Orders: Discharge Order (Routine); Ordered 10/14/17 Ordered By: Madeline Philip - Physicians Team Primary Care Provider: Primary Care Nano Gómez Attending Provider: Madeline Philip Other Providers: Gianna Rea MD
== END 2017-10-14 16:54 | disposition home or self-care (01) ==
LOC: NEPHCDU 11:22 → NEDA 11:22 → NEPE 11:22 → NEDA 18:02 → NEPHCDU 18:10
PROVIDERS: ADMIT Family Medicine; ATTEND Family Medicine
DX: R19.7 Diarrhea, unspecified; D64.9 Anemia, unspecified; G89.29 Other chronic pain; R11.2 Nausea with vomiting, unspecified; K29.70 Gastritis, unspecified, without bleeding; K21.0 Gastro-esophageal reflux disease with esophagitis; F17.210 Nicotine dependence, cigarettes, uncomplicated; I26.99 Other pulmonary embolism without acute cor pulmonale; R10.84 Generalized abdominal pain; R51 Headache; N80.9 Endometriosis, unspecified; K31.84 Gastroparesis; E66.01 Morbid (severe) obesity due to excess calories